=== PATIENT | female | born 1960 | race Caucasian/White ===

== ENCOUNTER 2023-08-14 19:34 | Emergency (ER) | payer MEDICARE, SELFPAY ==
--- NOTE | 2023-08-14 19:38 | ED.WOUNDLAC ---
HPI - Wound/Laceration General Chief Complaint: Skin/Abscess/Foreign Body Stated Complaint: cat bite right forearm Source: patient and RN notes reviewed Mode of arrival: ambulatory Limitations: no limitations History of Present Illness HPI narrative: Patient is a 63-year-old female who presents to the [facility] with complaints of a puncture wound and scratch from a cat that occurred around 830 this morning. Patient states that she has been feeding a barn CT and did not put the food out early enough. She states that the cat started eating as she was pouring the food and to the bowl. Patient states that the cat accidentally bit and scratched her right forearm. She states that she noticed some redness around the bite and was concerned for infection. Related Data Home Medications Medication Instructions Recorded Confirmed Zyrtec 10 mg DAILY 08/14/23 08/14/23 nebivolol 5 mg tablet 5 mg BID 08/14/23 08/14/23 paroxetine HCl 10 mg tablet 10 mg PO DAILY 08/14/23 08/14/23 Allergies Allergy/AdvReac Type Severity Reaction Status Date / Time azithromycin Allergy Unknown Verified 08/14/23 19:52 bupropion [From Wellbutrin] Allergy Unknown Verified 08/14/23 19:52 latex Allergy Unknown Verified 08/14/23 19:52 Sulfa (Sulfonamide Allergy Unknown Verified 08/14/23 19:52 Antibiotics) tetracycline Allergy Unknown Verified 08/14/23 19:52 Review of Systems Review of Systems: CONSTITUTIONAL: Denies fever, chills, or sweats. EYES: Denies visual changes, redness, or discharge. ENT: Denies otalgia and sore throat CARDIOVASCULAR: Denies chest pain, palpitations, or edema. RESPIRATORY: Denies cough or dyspnea. GASTROINTESTINAL: Denies abdominal pain, nausea, vomiting, or diarrhea. GENITOURINARY: Denies dysuria or hematuria. SKIN: Denies rash or itching. Reports cat bite and scratch to right forearm. MUSCULOSKELETAL: Denies back pain, joint pain, or myalgia. NEUROLOGIC: Denies headache, numbness, or weakness. Pertinent positives per HPI. PMFSH Comments At the time of my signature, I reviewed and agree with the nursing past medical, surgical, social, and family history. There is no relevant family history pertinent to the patient complaint. Exam Narrative: GENERAL: This is a well-nourished, well-developed patient, in no apparent distress. HEAD: normocephalic, atraumatic. EYES: PERRL. Sclera clear/white. Vision is grossly intact. EARS: External ears normal, auditory canals clear and without drainage, TMs normal without perforation. Hearing grossly intact. NOSE: External nose normal with no obvious nasal discharge, nares without redness, no rhinorrhea. THROAT: Mucous membranes moist, posterior pharynx clear. NECK: Neck supple, non-tender without lymphadenopathy, masses or thyromegaly. CARDIOVASCULAR: Regular rate and rhythm without murmurs, gallops, or rubs. RESPIRATORY: Clear to auscultation. Breath sounds equal bilaterally. No wheezes, rales, or rhonchi. GASTROINTESTINAL: Abdomen soft, non-tender, nondistended. Bowel sounds are active. No hepato-splenomegaly, or palpable masses. No guarding. SKIN: warm, intact with no suspicious rash, good texture and turgor. Puncture wound with surrounding erythema noted to right forearm due to cat bite. Superficial laceration noted to right forearm from cat scratch. NEURO: awake, alert, and oriented to person, place and time. There were no obvious focal neurologic abnormalities. Course Course Level of Care: Express Care Visit Vital Signs Vital signs: Vital Signs Temperature 97.8 F 08/14/23 19:46 Pulse Rate 65 08/14/23 19:46 Respiratory Rate 20 08/14/23 19:46 Blood Pressure 159/82 H 08/14/23 19:46 Pulse Oximetry 95 08/14/23 19:46 Oxygen Delivery Room Air 08/14/23 19:46 Temperature 97.8 F 08/14/23 19:46 Pulse Rate 65 08/14/23 19:46 Respiratory Rate 20 08/14/23 19:46 Blood Pressure 159/82 H 08/14/23 19:46 Pulse Oximetry 95 08/14/23 19:46 Oxygen D
[2023-08-14 19:46] VITALS: BP 159/82; PULSE 65; RESP 20; TEMP 36.6; O2SAT 95
== END 2023-08-14 20:05 | disposition home or self-care (01) ==
PROVIDERS: Emergency Provider Nurse Practitioner
DX: S51.831A Puncture wound without foreign body of right forearm, initial encounter (principal); W55.01XA Bitten by cat, initial encounter
CPT/HCPCS: 99213; G0463